=== PATIENT | male | born 1940 | race Caucasian/White ===

== ENCOUNTER → 2018-05-31 12:27 | Outpatient (CLI) | payer MEDICARE, BC ==
[2014-12-28 06:14] VITALS: BMI 24.6
[~2018-05-31 12:27] MED LIST: BAYER CHEWABLE81 MG PO; DIOVAN HCT 160/1 TA1 PO; MULTIPLE VITAMI1 TA1 PO; NEURONTIN 300300 MG PO; NORVASC10 MG PO; PLAVIX75 MG PO; PRAVACHOL40 MG PO; PRILOSEC20 MG PO; PROZAC20 MG PO
== END | disposition home or self-care (01) ==
LOC: D.CT 12:27
PROVIDERS: ATTEND Internal Medicine Gastroenterology
DX: R10.9 Unspecified abdominal pain (principal)

== ENCOUNTER 2018-07-08 06:03 | Day surgery (SDC) | payer MEDICARE, BC | END 2018-07-09 10:45 | disposition home or self-care (01) | LOC: D.OPS 06:03 → D.MS 18:18 | DX: K66.0 Peritoneal adhesions (postprocedural) (postinfection) (principal); G89.29 Other chronic pain; I10 Essential (primary) hypertension; E78.00 Pure hypercholesterolemia, unspecified; I25.10 Atherosclerotic heart disease of native coronary artery without angina pectoris; Z01.812 Encounter for preprocedural laboratory examination ==